=== PATIENT | female | born 1950 | race Caucasian/White ===

== ENCOUNTER → 2016-10-29 | Outpatient (CLI) | payer MEDICARE, OTHER ==
[~2016-10-29] MED LIST: BUPR150T20 PO; CA C1TAB60 PO; CALC200T3 PO; CYAN1TAB29 PO; DIPH25CA61 PO; GABA300C10 PO; GABAPENTIN PO; HYDR-3307 PO; HYDR1TAB12 PO; LOPE2CAP PO; METH750T2 PO; METH750T87 PO; MULT-658 PO; ROPI1TAB2 PO; SULF1TAB24 PO; TRIA1CAP3 PO; ZOLP-413 PO; ZOLP5TAB6 PO; magnesium PO
[2016-10-29 16:14] LABS: PATH.CAST-FLAG NOT PRESENT; SPERM-FLAG NOT PRESENT; SRC-FLAG NOT PRESENT; XTAL-FLAG NOT PRESENT; YLC-FLAG NOT PRESENT
[2016-10-29 16:19] LABS: ASPARTATE AMINO TRANSFERASE 20 U/L (15-37); BLOOD UREA NITROGEN 23 mg/dL (7-18)
== END | disposition home or self-care (01) ==
LOC: STAR 14:52
PROVIDERS: ATTEND Orthopaedic Surgery
DX: Z01.818 Encounter for other preprocedural examination (principal); R82.99 Other abnormal findings in urine
CPT/HCPCS: 36415; 80053; 81001; 85025; 87077; 87081; 87086; 93005

== ENCOUNTER 2016-11-10 07:57 | Inpatient (IN) | payer MEDICARE, OTHER ==
[~2016-11-10] VITALS: Ht 161.3 cm; Wt 88.4 kg
[~2016-11-10 07:57] MED LIST changes: +EPINEPHRINE 1 MG/ML, 1ML ONE; +KETOROLAC 60 MG/2 ML ONE; +ROPIvacaine/PF 0.2%, 20 ML ONE; +ROPIvacaine/PF 0.5%, 20 ML ONE; +SODIUM CHLORIDE 0.9% 50 ML ONE; +TRANEXAMIC ACID 100 MG/ML, 10ML ONE; +VANCOMYCIN 1,000 MG ONE
[2016-11-10] MEDS ORDERED: LACTATED RINGERS 1,000 ML IV SCH (08:57)
[2016-11-10] MEDS ORDERED: VANCOMYCIN PER PHARMACY MC ONE (08:57)
[2016-11-10] MEDS ORDERED: LIDOCAINE 1%, 2ML SQ PRN (09:00)
[2016-11-10] MEDS ORDERED: LIDOCAINE 1%, 2ML ONE (09:06)
[2016-11-10] MEDS ORDERED: VANCOMYCIN 1,600 MG in SODIUM CHLORIDE 0.9% 250 ML IV ONE (09:30)
[2016-11-10] MEDS ORDERED: MIDAZOLAM 1 MG/ML, 2ML ONE (10:08)
[2016-11-10] MEDS ORDERED: FENTANYL PF 250 MCG/5ML ONE (10:08)
[2016-11-10] MEDS ORDERED: ROPIvacaine/PF 0.5%, 20 ML ONE (10:37)
[2016-11-10] MEDS ORDERED: DEXAMETHASONE 4 MG/ML, 1ML ONE (10:59)
[2016-11-10] MEDS ORDERED: PROPOFOL 10 MG/ML, 20ML ONE (10:59)
[2016-11-10] MEDS ORDERED: ONDANSETRON 2MG/ML, 2ML ONE ×2 (10:59→13:25)
[2016-11-10] MEDS ORDERED: CEFAZOLIN 1,000 MG ONE (10:59)
[2016-11-10] MEDS ORDERED: MEPERIDINE/PF 25MG/0.5ML IVPush PRN (12:00)
[2016-11-10] MEDS ORDERED: HYDROmorphone 1 MG/ML, 1ML IV PRN ×2 (12:00→12:30)
[2016-11-10] MEDS ORDERED: PROMETHAZINE 25 MG/ML, 1ML IV PRN (12:00)
[2016-11-10] MEDS ORDERED: ALBUTEROL SULFATE 2.5 MG/3 ML NPPB PRN (12:00)
[2016-11-10] MEDS ORDERED: HYDROcodone/APAP 7.5-325MG/15ML UDC PO PRN (12:00)
[2016-11-10] MEDS ORDERED: MIDAZOLAM 1 MG/ML, 2ML IV PRN (12:00)
[2016-11-10] MEDS ORDERED: ACETAMINOPHEN 325 MG TABLET PO PRN (12:00)
[2016-11-10] MEDS ORDERED: LABETALOL 5MG/ML, 20ML IV PRN (12:00)
[2016-11-10] MEDS ORDERED: METOPROLOL 1 MG/ML, 5ML IV PRN (12:00)
[2016-11-10] MEDS ORDERED: EPHEDRINE 50 MG/ML, 1ML IVPush PRN (12:00)
[2016-11-10] MEDS ORDERED: ONDANSETRON 2MG/ML, 2ML IVPush PRN (12:00)
[2016-11-10] MEDS ORDERED: OXYcodone 5 MG/5 ML ORAL.SOL UDC PO PRN (12:00)
[2016-11-10] MEDS ORDERED: hydrALAzine 20 MG/ML, 1ML IV PRN (12:00)
[2016-11-10] MEDS ORDERED: OXYcodone 5 MG/5 ML ORAL.SOL UDC ONE (12:11)
[2016-11-10] MEDS ORDERED: FENTANYL PF 100 MCG/2ML ONE (12:11)
[2016-11-10] MEDS: FENTANYL PF 100 MCG/2ML IV PRN ×2 (12:12→12:26)
[2016-11-10] MEDS: D5%-0.45% NACL 1,000 ML IV SCH ×2 (12:27→23:30)
[2016-11-10] MEDS ORDERED: PROMETHAZINE 12.5 MG SUPP PR PRN (12:30)
[2016-11-10] MEDS ORDERED: BISACODYL 10 MG SUPP PR PRN (12:30)
[2016-11-10] MEDS ORDERED: ZOLPIDEM 5MG TABLET PO PRN (12:30)
[2016-11-10] MEDS ORDERED: SENNA/DOCUSATE TABLET PO PRN (12:30)
[2016-11-10] MEDS ORDERED: MAGNESIUM HYDROXIDE 8%, 30ML UDC PO PRN (12:30)
[2016-11-10] MEDS ORDERED: ACETAMINOPHEN 650 MG/20.3 ML UDC PO PRN (12:30)
[2016-11-10] MEDS ORDERED: PROMETHAZINE 25 MG/ML, 1ML IM PRN (12:30)
[2016-11-10] MEDS ORDERED: ALUMINUM/MAG/SIMETHICONE 30 ML UDC PO PRN (12:30)
[2016-11-10] MEDS ORDERED: DIPHENHYDRAMINE 50 MG CAPSULE PO PRN (12:30)
[2016-11-10] MEDS ORDERED: ONDANSETRON 4 MG TABLET PO PRN (12:30)
[2016-11-10] MEDS ORDERED: HYDROmorphone 1 MG/ML, 1ML ONE (12:43)
[2016-11-10] MEDS ORDERED: TRANEXAMIC ACID 1,000 MG in SODIUM CHLORIDE 0.9% 100 ML IVPB ONE ×2 (12:45→13:30)
[2016-11-10] MEDS ORDERED: SCOPOLAMINE PATCH, 1.5MG PATCH.TD72 TD SCH (13:00)
[2016-11-10] MEDS: DEXAMETHASONE 4 MG/ML, 1ML IVPush SCH (13:23)
[2016-11-10] MEDS: ONDANSETRON 2MG/ML, 2ML IV PRN ×2 (13:28→20:56)
[2016-11-10 14:15] VITALS: BP 135/83
[2016-11-10] MEDS: HYDROcodone/APAP 10/325 MG TABLET PO SCH ×4 (16:12→23:29)
[2016-11-10] MEDS: TAMSULOSIN 0.4 MG CAP.ER.24H PO SCH (16:14)
[2016-11-10] MEDS: CEFAZOLIN PMX 2GM/50ML 50 ML IVPB SCH (18:44)
[2016-11-10] MEDS: DIAZEPAM 5 MG TABLET PO PRN (20:56)
[2016-11-10 21:34] VITALS: BP 92/54
[2016-11-10] MEDS: DOCUSATE 100 MG CAPSULE PO SCH (23:29)
[2016-11-10] MEDS: ROPINIROLE 1MG TABLET PO SCH (23:29)
[2016-11-10] MEDS: PREGABALIN 75 MG CAPSULE PO SCH (23:30)
[2016-11-10] MEDS: BUPROPION SR 150 MG TABLET PO SCH (23:30)
[2016-11-10 23:50] VITALS: BP 99/52
[2016-11-11] MEDS: HYDROcodone/APAP 10/325 MG TABLET PO SCH ×4 (02:10→10:08)
[2016-11-11 03:49] VITALS: BP 98/68
[2016-11-11] MEDS: DEXAMETHASONE 4 MG/ML, 1ML IVPush SCH (05:19)
[2016-11-11] MEDS: CEFAZOLIN PMX 2GM/50ML 50 ML IVPB SCH (05:19)
[2016-11-11] MEDS: ASPIRIN 81 MG TABLET EC PO SCH (05:22)
[2016-11-11] MEDS: D5%-0.45% NACL 1,000 ML IV SCH ×3 (05:22→20:23)
[2016-11-11 07:44] VITALS: BP 119/83
[2016-11-11] MEDS: PREGABALIN 75 MG CAPSULE PO SCH ×2 (08:09→20:23)
[2016-11-11] MEDS: TAMSULOSIN 0.4 MG CAP.ER.24H PO SCH (08:09)
[2016-11-11] MEDS: MULTIVITAMINS/MINERALS TABLET PO SCH (08:09)
[2016-11-11] MEDS: DOCUSATE 100 MG CAPSULE PO SCH ×2 (08:09→20:23)
[2016-11-11] MEDS: BUPROPION SR 150 MG TABLET PO SCH ×2 (08:09→20:23)
[2016-11-11] MEDS: TRIAMTERENE-HCTZ 37.5/25 MG TABLET PO SCH (08:14)
[2016-11-11] MEDS: KETOROLAC 30 MG/1 ML IV SCH ×2 (12:30→20:23)
[2016-11-11] MEDS: HYDROcodone/APAP 10/325 MG TABLET PO PRN ×3 (14:02→22:41)
[2016-11-11 15:01] VITALS: BP 85/58
[2016-11-11] MEDS: DIAZEPAM 5 MG TABLET PO PRN ×2 (16:18→22:41)
[2016-11-11 18:54] VITALS: BP 101/63
[2016-11-11] MEDS: ROPINIROLE 1MG TABLET PO SCH (20:23)
[2016-11-12 02:09] VITALS: BP 106/64
[2016-11-12] MEDS: HYDROcodone/APAP 10/325 MG TABLET PO PRN ×2 (03:56→09:29)
[2016-11-12] MEDS: D5%-0.45% NACL 1,000 ML IV SCH (03:56)
[2016-11-12] MEDS: KETOROLAC 30 MG/1 ML IV SCH (03:56)
[2016-11-12] MEDS: ASPIRIN 81 MG TABLET EC PO SCH (06:45)
[2016-11-12 08:15] VITALS: BP 110/70
[2016-11-12] MEDS: TRIAMTERENE-HCTZ 37.5/25 MG TABLET PO SCH (09:22)
[2016-11-12] MEDS: TAMSULOSIN 0.4 MG CAP.ER.24H PO SCH (09:29)
[2016-11-12] MEDS: PREGABALIN 75 MG CAPSULE PO SCH (09:29)
[2016-11-12] MEDS: DOCUSATE 100 MG CAPSULE PO SCH (09:29)
[2016-11-12] MEDS: BUPROPION SR 150 MG TABLET PO SCH (09:29)
[2016-11-12] MEDS: MULTIVITAMINS/MINERALS TABLET PO SCH (09:29)
[2016-11-12 11:46] VITALS: BP 106/59
== END 2016-11-12 12:36 | disposition home or self-care (01) | DRG 465 ==
LOC: ORIP 07:57 → 4NOR 13:40 → DCLOUNGE 11-12 12:12
PROVIDERS: ADMIT Orthopaedic Surgery; ATTEND Orthopaedic Surgery
PROC: 0SUC09C Supplement Right Knee Joint with Liner, Patellar Surface, Open Approach (ICD-10-PCS; 2016-11-10)
PROC: 0SPC09Z Removal of Liner from Right Knee Joint, Open Approach (ICD-10-PCS; 2016-11-10)
PROC: 0SUV09Z Supplement Right Knee Joint, Tibial Surface with Liner, Open Approach (ICD-10-PCS; 2016-11-10)
PROC: 0SPC0JC Removal of Synthetic Substitute from Right Knee Joint, Patellar Surface, Open Approach (ICD-10-PCS; principal; 2016-11-10 11:00)
DX: T84.032A Mechanical loosening of internal right knee prosthetic joint, initial encounter (principal); I10 Essential (primary) hypertension; Z87.891 Personal history of nicotine dependence
CPT/HCPCS: 36415; 85014; 85018; J0171; J0690; J1100; J1885; J2250; J2405; J2550; J2704; J2795; J3010; J3370; J3490; J7050; J7120